=== PATIENT | male | born 1985 | race Caucasian/White ===

== ENCOUNTER 2019-10-23 15:45 | Observation (INO) ==
[2019-10-23] MEDS ORDERED: SODIUM CHLORIDE 0.9% 1000ML 2,000 ML IV ONE (16:05)
[2019-10-23] MEDS ORDERED: ONDANSETRON INJ 2 MG/ML 2 ML VIAL IV STA ×2 (16:05→20:21)
[2019-10-23 16:54] LABS: Basophils # (auto) 0.03 K/uL (0-0.2); Basophils % (auto) 0.1 %; Eosinophils # (auto) 5.58 K/uL (0-0.5); Eosinophils % (auto) 25.2 %; Hematocrit (blood only) 49.3 % (42-52); Hemoglobin 17.9 g/dL (14.0-18.0); Immature Granulocytes # (auto) 0.15 K/uL (0.00-0.02); Immature Granulocytes % (auto) 0.7 %; Lymphocytes # (auto) 3.63 K/uL (1.2-3.4); Lymphocytes % (auto) 16.4 %; Mean Corpuscular Hemoglobin 31.7 pg (25-34); Mean Corpuscular Hgb Conc 36.3 g/dL (32-36); Mean Corpuscular Volume 87.3 fL (80-100); Monocytes # (auto) 1.32 K/uL (0.11-0.59); Neutrophils # (auto) 11.43 K/uL (1.4-6.5); Neutrophils % (auto) 51.6 %; Platelet Count 302 K/uL (130-400); RDW Coefficient of Variation 12.7 % (11.5-14.5); RDW Standard Deviation 40.2 fL (36.4-46.3); Red Blood Count 5.65 M/uL (4.7-6.1); White Blood Count 22.14 K/uL (4.8-10.8)
--- NOTE | 2019-10-23 17:19 | Emergency Department Note ---
Impression & Plan Abdominal pain, Vomiting, Leukocytosis, Abdominal ascites, Right upper quadrant abdominal pain ED Provider Note NAME: ANGELY DUMONT AGE: 34 SEX: M : 1985 ARRIVES VIA: Walk-In INFORMANT: Patient ED PROVIDER(S): Grant Pires DO CHIEF COMPLAINT: Abdominal pain HPI: Patient is a 34-year-old male who presents the ER for abdominal pain associate with nausea, vomiting, and diarrhea which has been present since the of this month. He has had chills and felt very achy. This all continued until this past . At that time he has not been able to eat or drink. He continually vomits. Pain is worse with eating and drinking. It Is also w orse with movement. He was tested for coronavirus on Monday and that was negative. He had an ultrasound done today along with blood work. He was referred in as there is a question of gallstones along with a white count of 20,000. Patient denies any chest pain, shortness of breath, cough or runny nose. He has had a fever this past of 100.4. No other exacerbating or remitting factors. No previous belly surgeries. ROS: See above HPI for pertinent positives & negatives. A total of 10 systems reviewed and were otherwise negative. PAST MEDICAL HISTORY:See Below PAST SURGICAL HISTORY:See Below FAMILY HISTORY:See Below SOCIAL HISTORY:See Below HOME MEDICATIONS:See Below ALLERGIES:See Below VITALS:See Below PHYSICAL EXAMINATION: GENERAL: Sitting up in bed, alert, well appearing, well nourished, no distress, non-toxic EYE EXAM: normal conjunctiva. OROPHARYNX: no exudate, no erythema, lips, buccal mucosa, and tongue normal and mucous membranes are moist NECK: supple, no nuchal rigidity, no adenopathy, non-tender LUNGS: Clear to auscultation. Normal chest wall mechanics HEART: no murmurs, S1 normal and S2 normal ABDOMEN: abdomen soft, minimal tenderness in the right upper quadrant, normo- active bowel sounds, no masses, no rebound or guarding. BACK: Back is symmetrical on inspection and there is no deformity, no midline tenderness, no CVA tenderness. SKIN: no rashes and no bruising UPPER EXTREMITIES: upper extremities are grossly normal. LOWER EXTREMITIES: No pitting edema. NEURO EXAM: Normal sensorium, cranial nerves II-XII grossly intact, normal speech, no gross weakness of arms, no gross weakness of legs. MEDICAL DECISION MAKING: Patient is a 34-year-old male who presents the ER for abdominal pain which is been going on since . IV was established blood work was obtained. Labs show leukocytosis of 22,000. No significant anemia. BMP shows slightly elevated chloride. LFTs bilirubin and lipase was unremarkable. UA was clean. Reviewed the ultrasound as an outpatient which was indeterminate due to bowel gas pattern consequently performed a CT abdomen pelvis was performed and showed mesenteric and portal traction of the proximal jejunum and duodenum suggesting an enteritis and small amount ascites. There is distal esophageal thickening which consistent with previous. Mild infiltration adjacent to the bladder although not consistent with UTI as though UA is negative. There is some gallbladder distention. Consulted general surgery who recommended initially via telephone admission to the hospitalist. He evaluated the patient at bedside. He recommended transfer as he was concern for Patricia-Robert tear. He did admit that he did not see any clear perforation. For this to be a perforation this would not be a Patricia-Robert tear but rather poor habits syndrome. He does have a history of a previous pleural effusion before in the past. Discussed with [facility] hospitalist who declined transfer after discussion of the case that this is not consistent with a Boerhaave syndrome. We discussed the case with radiology Dr. Kyle Ballesteros who notes that he sees no perforation in the distal esophagus does appear to be consistent with previous imaging. As [facility] would not accept this patient we discussed the case with our general surgery but due to the time labs Dr. Leatha Short is currently hospital nurse liaison. Discussed the entire case with her. She was agreeable with admission to the hospitalist. At this time I rediscussed the case with the hospitalist and Dr. hall who was agreeable to admitting the patient. Patient had already received IV fluids. Patient received IV Zosyn I also gave him IV morphine and Protonix IV. Throughout his time in the ER heart rate has trended down to the 90s from the 120s. Signs and outpatient was reviewed and showed technically limited and increased echogenicity of the liver with a hypoechoic region adjacent to the gallbladder. 6 mm gallbladder polyp versus sludge. Triage Nursing notes reviewed. Prior medical records reviewed Vital Signs: reviewed and remarkable for hypertensive and tachycardic Differential diagnosis: Differential diagnoses includes but is not limited to gastritis, peptic ulcer disease, GERD, gallbladder disease, pancreatitis, small bowel obstruction, acute coronary syndrome, pericarditis, ischemic bowel, irritable bowel disease, irritable bowel syndrome, appendicitis, diverticulitis, malignancy, hernia, urinary tract infection, torsion, perforation, trauma, infectious. ER treatment provided: See below Diagnostics interpreted by me: ECG: none Cardiac Monitoring: An order was placed for continuous cardiac monitoring. The monitor shows a rate of 110 with sinus rhythm. Laboratory studies: As stated above and show below. Imaging studies: CT abdomen pelvis shows:1. Thickening and associated mesenteric infiltration of the proximal jejunum and duodenum. The findings suggest a nonspecific enteritis. Small amount of associated ascites. No evidence for a bowel obstruction. Normal appendix. No abscess. No free air. 2. Marked circumferential distal esophageal wall thickening which is similar to CT of May 03, 2014. Although nonspecific, this favors esophagitis. 3. Mild infiltration adjacent to the bladder which could be correlated with urinalysis. 4. Mild gallbladder distention. 5. Mild nonspecific perirectal infiltration. Consultation(s): Consultations as discussed above in the MDM Discussed with Dr. Leonardo who recommended admission to [facility] initially [facility] D[facility] with [facility] who declined transfer Discussed with Kyle Ballesteros Discussed with Leatha Short who was agreeable with admission here Discussed with Dr. hill for admission ED COURSE: Procedures: none Critical Care: None Past Med/Surg History Social History Smoking Status: Current some day smoker Tobacco Type: Cigars Feels Safe at Home: Yes Allergies Allergies Allergy/AdvReac Type Severity Reaction Status Date / Time ketorolac AdvReac Intermediate "Horrible" Verified 10/23/19 16:36 Acid Reflux Home Meds Home Medications Medication Instructions Recorded Confirmed famotidine 20 mg PO BID 10/23/19 10/23/19 paroxetine HCl 20 mg PO HS 10/23/19 10/23/19 Results & Data (ED) Vital Signs Vital Signs - 24 hr 10/23/19 15:48 10/23/19 16:06 10/23/19 16:46 Temperature 36.6 C Temperature Source Oral Pulse Rate 116 H 77 Pulse Rate from SpO2 Sensor Respiratory Rate 20 15 Respiratory Effort / Characteristics Non-Labored Respiratory Depth Normal Blood Pressure 185/136 H Blood Pressure Mean 152 Pulse Oximetry 96 99 Oxygen Delivery Method Room Air Room Air Sepsis Recent Fever Within 48 Hours No Sepsis New/Unexplained Change in Mental Status N/A Sepsis Action Taken by Nursing No Action Required 10/23/19 16:50 10/23/19 17:00 10/23/19 17:10 Temperature Temperature Source Pulse Rate 85 82 82 Pulse Rate from SpO2 Sensor Respiratory Rate 21 17 22 Respiratory Effort / Characteristics Respiratory Depth Blood Pressure Blood Pressure Mean Pulse Oximetry Oxygen Delivery Method Sepsis Recent Fever Within 48 Hours Sepsis New/Unexplained Change in Mental Status Sepsis Action Taken by Nursing 10/23/19 17:20 10/23/19 17:49 10/23/19 17:51 Temperature Temperature Source Pulse Rate 93 H 92 H Pulse Rate from SpO2 Sensor 92 H 93 H Respiratory Rate 16 21 17 Respiratory Effort / Characteristics Respiratory Depth Blood Pressure 174/128 H Blood Pressure Mean 143 Pulse Oximetry 99 98 Oxygen Delivery Method Sepsis Recent Fever Within 48 Hours Sepsis New/Unexplained Change in Mental Status Sepsis Action Taken by Nursing 10/23/19 18:00 10/23/19 18:01 10/23/19 18:10 Temperature Temperature Source Pulse Rate 80 92 H 88 Pulse Rate from SpO2 Sensor 81 93 H 84 Respiratory Rate 15 17 14 Respiratory Effort / Characteristics Respiratory Depth Blood Pressure 173/126 H Blood Pressure Mean 141 Pulse Oximetry 96 95 97 Oxygen Delivery Method Sepsis Recent Fever Within 48 Hours Sepsis New/Unexplained Change in Mental Status Sepsis Action Taken by Nursing 10/23/19 18:20 10/23/19 18:30 10/23/19 18:34 Temperature Temperature Source Pulse Rate 89 83 75 Pulse Rate from SpO2 Sensor 87 82 77 Respiratory Rate 16 18 14 Respiratory Effort / Characteristics Respiratory Depth Blood Pressure 194/142 H Blood Pressure Mean 176 Pulse Oximetry 97 98 97 Oxygen Delivery Method Sepsis Recent Fever Within 48 Hours Sepsis New/Unexplained Change in Mental Status Sepsis Action Taken by Nursing 10/23/19 18:40 10/23/19 18:50 10/23/19 19:00 Temperature Temperature Source Pulse Rate 89 80 75 Pulse Rate from SpO2 Sensor 88 83 79 Respiratory Rate 17 14 14 Respiratory Effort / Characteristics Respiratory Depth Blood Pressure Blood Pressure Mean Pulse Oximetry 98 98 97 Oxygen Delivery Method Sepsis Recent Fever Within 48 Hours Sepsis New/Unexplained Change in Mental Status Sepsis Action Taken by Nursing 10/23/19 19:01 10/23/19 19:10 10/23/19 19:20 Temperature Temperature Source Pulse Rate 96 H 81 86 Pulse Rate from SpO2 Sensor 96 H 83 88 Respiratory Rate 19 16 22 Respiratory Effort / Characteristics Respiratory Depth Blood Pressure Blood Pressure Mean Pulse Oximetry 96 97 97 Oxygen Delivery Method Sepsis Recent Fever Within 48 Hours Sepsis New/Unexplained Change in Mental Status Sepsis Action Taken by Nursing 10/23/19 19:30 10/23/19 19:32 Temperature Temperature Source Pulse Rate 100 H 94 H Pulse Rate from SpO2 Sensor 100 H 96 H Respiratory Rate 23 20 Respiratory Effort / Characteristics Respiratory Depth Blood Pressure 169/107 H Blood Pressure Mean 123 Pulse Oximetry 97 97 Oxygen Delivery Method Sepsis Recent Fever Within 48 Hours Sepsis New/Unexplained Change in Mental Status Sepsis Action Taken by Nursing Laboratory Data Result diagrams: 10/23/19 16:46 10/23/19 16:46 Lab Results 10/23/19 10/23/19 10/23/19 Range/Units 16:46 16:46 17:50 WBC 22.14 H (4.8-10.8) K/uL RBC 5.65 (4.7-6.1) M/uL Hgb 17.9 (14.0-18.0) g/dL Hct 49.3 (42-52) % MCV 87.3 (80-100) fL MCH 31.7 (25-34) pg MCHC 36.3 H (32-36) g/dL RDW Std Deviation 40.2 (36.4-46.3) fL RDW Coeff of Jay 12.7 (11.5-14.5) % Plt Count 302 (130-400) K/uL MPV 11.0 H (7.4-10.4) fL Immature Gran % (Auto) 0.7 % Neut % (Auto) 51.6 % Lymph % (Auto) 16.4 % [place] % (Auto) 6.0 % Eos % (Auto) 25.2 % Baso % (Auto) 0.1 % Neut # (Auto) 11.43 H (1.4-6.5) K/uL Lymph # (Auto) 3.63 H (1.2-3.4) K/uL [place] # (Auto) 1.32 H (0.11-0.59) K/uL Eos # (Auto) 5.58 H (0-0.5) K/uL Baso # (Auto) 0.03 (0-0.2) K/uL Immature Gran # (Auto) 0.15 H (0.00-0.02) K/uL Sodium 142 (136-145) mmol/L Potassium 3.8 (3.5-5.1) mmol/L Chloride 108 H (98-107) mmol/L Carbon Dioxide 29 (21-32) mmol/L Anion Gap 5.0 (3-11) BUN 11 (7-18) mg/dl Creatinine 1.21 (0.6-1.4) mg/dl Est Cr Clr Drug Dosing Not Reportable Est GFR ( Amer) 90.0 Est GFR (Non-Af Amer) 77.6 BUN/Creatinine Ratio 9.2 L (10-20) Glucose 93 (70-99) mg/dl Calcium 9.2 (8.5-10.1) mg/dl Total Bilirubin 0.9 (0.2-1) mg/dl AST 25 (15-37) U/L ALT 36 (12-78) U/L Alkaline Phosphatase 49 (45-117) U/L Total Protein 7.6 (6.4-8.2) gm/dl Albumin 3.7 (3.4-5.0) gm/dl Globulin 3.9 (2.5-4.0) gm/dl Albumin/Globulin Ratio 0.9 (0.9-2) Lipase 122 (73-393) U/L Specimen Hemolysis Urine Color Yellow Urine Appearance Clear (Clear) Urine pH 6.5 (4.5-7.5) Ur Specific [place] 1.038 H (1.000-1.030) Urine Protein Negative (Negative) Urine Glucose (UA) Negative (Negative) Urine Ketones Negative (Negative) Urine Blood Negative (Negative) Urine Nitrite Negative (Negative) Urine Bilirubin Negative (Negative) Urine Urobilinogen Negative (Negative) Ur Leukocyte Esterase Negative (Negative) Administered Medications Ioversol (Optiray 320 100ml) 93 ml IV ONCE PRN PRN Reason: Interaction Checking Stop: 10/27/19 17:32 Last Admin: 10/23/19 17:34 Dose: 93 ml Documented by: [id number] Discontinued Medications Sodium Chloride (Nss 1000ml) 2,000 mls @ 999 mls/hr IV .Q2H1M ONE Stop: 10/23/19 18:05 Last Infusion: 10/23/19 19:33 Dose: 0 mls/hr Documented by: [id number] Admin: 10/23/19 16:44 Dose: 999 mls/hr Documented by: [id number] Piperacillin Sod/Tazobactam Sod (Zosyn) 4.5 gm in 120 mls @ 240 mls/hr IV NOW ONE; Protocol Stop: 10/23/19 18:17 Last Infusion: 10/23/19 19:33 Dose: 0 mls/hr Documented by: [id number] Admin: 10/23/19 18:33 Dose: 240 mls/hr Documented by: [id number] Ondansetron HCl (Zofran) 4 mg IV NOW STA Stop: 10/23/19 16:06 Last Admin: 10/23/19 16:44 Dose: 4 mg Documented by: [id number] Discharge Plan Visit Data Chief Complaint: Abnormal Labs/Diagnostic Testing Stated Complaint: ABNORMAL LABS FROM THIS MORNING - REF BY DOC ED Provider: Grant Pires Discharge Problem: Abdominal pain, Vomiting, Leukocytosis, Abdominal ascites, Right upper quadrant abdominal pain Forms Stand Alone Forms: [place] Prescriptions Prescriptions: No Action famotidine 20 mg tablet 20 mg PO BID RF: 0 paroxetine HCl 20 mg tablet 20 mg PO HS RF: 0 Discharge Problem: Abdominal pain Qualifiers: Abdominal location: unspecified location Qualified Code(s): R10.9 - Unspecified abdominal pain Vomiting Qualifiers: Vomiting type: unspecified Vomiting Intractability: unspecified Nausea presence: unspecified Qualified Code(s): R11.10 - Vomiting, unspecified Leukocytosis Qualifiers: Leukocytosis type: unspecified Qualified Code(s): D72.829 - Elevated white blood cell count, unspecified Abdominal ascites Qualifiers: Ascites type: other type Qualified Code(s): R18.8 - Other ascites
[2019-10-23 17:21] LABS: Alanine Aminotransferase 36 U/L (12-78); Albumin Globulin Ratio 0.9 (0.9-2); Albumin Level 3.7 gm/dl (3.4-5.0); Alkaline Phosphatase 49 U/L (45-117); Aspartate Aminotransferase 25 U/L (15-37); BUN Creatinine Ratio 9.2 (10-20); Bilirubin,Total 0.9 mg/dl (0.2-1); Blood Urea Nitrogen 11 mg/dl (7-18); Calcium 9.2 mg/dl (8.5-10.1); Carbon Dioxide 29 mmol/L (21-32); Chloride 108 mmol/L (98-107); Est GFR (Non-African American) 77.6; Globulin 3.9 gm/dl (2.5-4.0); Glucose 93 mg/dl (70-99); Lipase 122 U/L (73-393); Potassium 3.8 mmol/L (3.5-5.1); Sodium 142 mmol/L (136-145); Total Protein 7.6 gm/dl (6.4-8.2)
[2019-10-23] MEDS ORDERED: IOVERSOL 100ml IV PRN (17:33)
[2019-10-23] MEDS ORDERED: PIPERACILL/TAZOBAC CONSULT ACTIVE PRN (17:48)
[2019-10-23] MEDS ORDERED: PIPERACILLIN/TAZOBACTAM 4.5 GM/120 ML BAG IV ONE (17:48)
[2019-10-23 18:05] LABS: Appearance Urine Clear (Clear); Bilirubin Urine Negative (Negative); Blood Urine Negative (Negative); Color Urine Yellow; Glucose Urine UA Negative (Negative); Ketones Urine Negative (Negative); Leukocyte Esterase Urine Negative (Negative); Nitrite Urine Negative (Negative); Protein Urine Negative (Negative); Specific Gravity Urine 1.038 (1.000-1.030); Urobilinogen Urine Negative (Negative); pH Urine 6.5 (4.5-7.5)
--- NOTE | 2019-10-23 18:05 | CT Scan Report ---
CT OF THE ABDOMEN AND PELVIS WITH CONTRAST CLINICAL HISTORY: Abdominal pain. Leukocytosis. COMPARISON STUDY: CT of the abdomen and pelvis May 03, 2014. TECHNIQUE: Following IV administration of 93 mL of Optiray-320, axial images of the abdomen and pelvi s were obtained from the lung bases to the proximal femurs. Images were reviewed in the axial, sagitt al, and coronal planes. IV contrast was administered without complication. Automated exposure contro l was utilized for the study. A dose lowering technique was utilized adhering to the principles of A PENG. CT DOSE: 2190.79 mGy.cm FINDINGS: Visualized portions of the lower chest demonstrate a trace right pleural effusion. There is marked circumferential wall thickening of the distal esophagus. This is similar to CT of May 03, 2014. A small amount of ascites within the abdomen and pelvis is noted. There is probable fatty infi ltration of the liver. No hepatic lesions are noted. No biliary or pancreatic ductal dilatation. No p eripancreatic infiltration is present. Bladder is mildly distended. The spleen, adrenal glands and ri ght kidney are unremarkable. There is no hydronephrosis. A 7.1 cm left renal cyst is noted. There is no evidence for a bowel obstruction. The appendix is normal. Note is made of mild wall thickening and mesenteric infiltration associated with several jejunal loops as well as the fourth portion of the d uodenum. Major vasculature is patent. No transition point is identified. There is mild infiltration a djacent to the bladder. There is mild perirectal infiltration. No suspicious osseous lesions are note d. IMPRESSION: 1. Thickening and associated mesenteric infiltration of the proximal jejunum and duodenum. The findin gs suggest a nonspecific enteritis. Small amount of associated ascites. No evidence for a bowel obstr uction. Normal appendix. No abscess. No free air. 2. Marked circumferential distal esophageal wall thickening which is similar to CT of May 03 5. Although nonspecific, this favors esophagitis. 3. Mild infiltration adjacent to the bladder which could be correlated with urinalysis. 4. Mild gallbladder distention. 5. Mild nonspecific perirectal infiltration. ACT 112: Negative or not required by law. Electronically signed by: Bucky Ballesteros M.D. 10/23/2019 6:03 PM
--- NOTE | 2019-10-23 19:36 | Surgery Consultation ---
Date of Consultation October 23, 2019 Assessment & Plan (1) Epigastric pain: pt is a 34 year-old male who presents to ER with 11 days history nausea, vomiting, epigastric pain and diarrhea, IMP: vomiting, epigastric pain, to R/O Patricia-Robert tear syndrome consult GI, and thoracic surgeon, transfer to tertiary care, D/W pt about H/P, labs, U/S, CT scan diagnosis, and transfer for further diagnosis and treatment, pt understood, he agrees with the plan, D/W ER attending, Present on Admission?: Yes (2) Vomiting: History of Present Illness History of Present Illness CC: epigastric pain with nausea and vomiting, HPI: pt is a 34 year-old male who presents to ER with 11 days history nausea, vomiting and diarrhea, pt's symptoms were worse about 6 days ago, pt developed epigastric pain after vomiting, with fever 100.4, and chills, pt could not take foods down, pt feels worse epigastric pain when he take po food, pt denies chest pain, otherwise pt is healthy in the past, pt had U/S and WBC 20,000, at outside hospital, U/S showed no gallstone, no acute cholecystitis, pt had CT scan at Er showed- a trace right pleural effusion. There is marked circumferential wall thickening of the distal esophagus. Allergies Allergy/AdvReac Type Severity Reaction Status Date / Time ketorolac AdvReac Intermediate "Horrible" Verified 10/23/19 16:36 Acid Reflux Home Medications Home Medications Medication Instructions Recorded Confirmed Type famotidine 20 mg PO BID 10/23/19 10/23/19 History paroxetine HCl 20 mg PO HS 10/23/19 10/23/19 History Patient History Social History Smoking Status: Current some day smoker Tobacco Type: Cigars Feels Safe at Home: Yes Review of Systems Review of Systems: All systems reviewed & are unremarkable except as noted in HPI & below Constitutional: as per Subjective / HPI Eyes: as per Subjective / HPI Ear, Nose, Mouth, Throat: as per Subjective / HPI Respiratory: as per Subjective / HPI Cardiovascular: as per Subjective / HPI Gastrointestinal: as per Subjective / HPI Genitourinary: + as per Subjective / HPI Musculoskeletal: as per Subjective / HPI Integumentary: as per Subjective / HPI Neurologic: as per Subjective / HPI Psychiatric: as per Subjective / HPI Endocrine: as per Subjective / HPI Hematologic / Lymphatic: as per Subjective / HPI Physical Exam Constitutional: WD/WN, vitals as above well developed and well nourished Eyes: PERRL, conjunctivae normal, anicteric sclerae ENMT: external ear and nose normal, oropharynx normal Neck: trachea midline, no thyromegaly Respiratory: normal respiratory effort, lungs clear to auscultation normal respiratory effort Cardiovascular: RRR, no murmur, no edema Rate/Rhythm: regular rate Heart Sounds: normal S1 and normal S2 Gastrointestinal (Abdomen): tenderness at epigastric area and RUQ area, no rebound pain, no distend, BS + Musculoskeletal: no cyanosis or clubbing, extremities motor strength 5/5 Skin: no rashes, warm and dry Neurologic: patellar DTR's 2+ bilat, sensation intact Psychiatric: Orientation: alert and oriented x 3 Results & Data Vital Signs (Past 12 Hours) Vital Signs Temp Pulse Resp BP Pulse Ox 10/23/19 18:40 89 17 98 10/23/19 18:34 75 14 194/142 H 97 10/23/19 18:30 83 18 98 10/23/19 18:20 89 16 97 10/23/19 18:10 88 14 97 10/23/19 18:01 92 H 17 95 10/23/19 18:00 80 15 173/126 H 96 10/23/19 17:51 92 H 17 98 10/23/19 17:49 93 H 21 174/128 H 99 10/23/19 17:20 16 10/23/19 17:10 82 22 10/23/19 17:00 82 17 10/23/19 16:50 85 21 10/23/19 16:46 77 15 10/23/19 16:06 99 10/23/19 15:48 36.6 C 116 H 20 185/136 H 96 Laboratory Results Abnormal lab results 10/23/19 10/23/19 10/23/19 Range/Units 16:46 16:46 17:50 WBC 22.14 H (4.8-10.8) K/uL MCHC 36.3 H (32-36) g/dL MPV 11.0 H (7.4-10.4) fL Neut # (Auto) 11.43 H (1.4-6.5) K/uL Lymph # (Auto) 3.63 H (1.2-3.4) K/uL [place] # (Auto) 1.32 H (0.11-0.59) K/uL Eos # (Auto) 5.58 H (0-0.5) K/uL Immature Gran # (Auto) 0.15 H (0.00-0.02) K/uL Chloride 108 H (98-107) mmol/L BUN/Creatinine Ratio 9.2 L (10-20) Ur Specific [place] 1.038 H (1.000-1.030) Diagnostic Findings CT OF THE ABDOMEN AND PELVIS WITH CONTRAST CLINICAL HISTORY: Abdominal pain. Leukocytosis. COMPARISON STUDY: CT of the abdomen and pelvis May 03, 2014. TECHNIQUE: Following IV administration of 93 mL of Optiray-320, axial images of the abdomen and pelvis were obtained from the lung bases to the proximal femurs. Images were reviewed in the axial, sagittal, and coronal planes. IV contrast was administered without complication. Automated exposure control was utilized for the study. A dose lowering technique was utilized adhering to the principles of ALARA. CT DOSE: 2190.79 mGy.cm FINDINGS: Visualized portions of the lower chest demonstrate a trace right pleural effusion. There is marked circumferential wall thickening of the distal esophagus. This is similar to CT of May 03, 2014. A small amount of ascites within the abdomen and pelvis is noted. There is probable fatty infiltration of the liver. No hepatic lesions are noted. No biliary or pancreatic ductal dilatation. No peripancreatic infiltration is present. Bladder is mildly dist ended. The spleen, adrenal glands and right kidney are unremarkable. There is no hydronephrosis. A 7.1 cm left renal cyst is noted. There is no evidence for a bowel obstruction. The appendix is normal. Note is made of mild wall thickening and mesenteric infiltration associated with several jejunal loops as well as the fourth portion of the duodenum. Major vasculature is patent. No transition point is identified. There is mild infiltration adjacent to the bladder. There is mild perirectal infiltration. No suspicious osseous lesions are noted. IMPRESSION: 1. Thickening and associated mesenteric infiltration of the proximal jejunum and duodenum. The findings suggest a nonspecific enteritis. Small amount of associated ascites. No evidence for a bowel obstruction. Normal appendix. No abscess. No free air. 2. Marked circumferential distal esophageal wall thickening which is similar to CT of May 03, 2014. Although nonspecific, this favors esophagitis. 3. Mild infiltration adjacent to the bladder which could be correlated with urinalysis. 4. Mild gallbladder distention. 5. Mild nonspecific perirectal infiltration.
--- NOTE | 2019-10-23 19:45 | XRay Report ---
XR chest 1V portable CLINICAL HISTORY: Vomiting. COMPARISON STUDY: Chest radiograph September 27, 2009. FINDINGS: Lung volumes are normal. Lungs are clear. There is no pneumothorax or pleural effusion. Car diac size is normal. Mediastinal contours are normal. There is no evidence for pulmonary edema. IMPRESSION: No acute cardiopulmonary findings. ACT 112: Negative or not required by law. Electronically signed by: Bucky Ballesteros M.D. 10/23/2019 7:43 PM
[2019-10-23] MEDS ORDERED: MoRPHine SULFATE 10 MG/ML CARP/VIAL IV STA (20:21)
[2019-10-23] MEDS ORDERED: PANTOprazole 40 MG in SYRINGE 0 ML IV ONE (20:21)
[2019-10-23] MEDS ORDERED: MoRPHine SULFATE 4 MG/ML 1 ML CARP\\VIAL ONE (20:36)
[2019-10-23] MEDS ORDERED: MoRPHine SULFATE 2 MG/ML CARP ONE (20:36)
[2019-10-23] MEDS: FAMOTIDINE 20 MG TAB PO SCH (22:13)
[2019-10-23] MEDS ORDERED: ACETAMINOPHEN 325 MG TAB PO PRN (22:45)
[2019-10-23] MEDS ORDERED: ONDANSETRON INJ 2 MG/ML 2 ML VIAL IV PRN (22:45)
[2019-10-23] MEDS: D5W AND NSS 1,000 ML IV SCH (23:23)
[2019-10-23] MEDS: PANTOprazole 40 MG in SYRINGE 0 ML IV SCH (23:50)
--- NOTE | 2019-10-23 23:58 | History and Physical Report ---
DATE OF ADMISSION: 10/23/2019 CHIEF COMPLAINT: Nausea, vomiting, diarrhea, abdominal pain. HISTORY OF PRESENT ILLNESS: This is a 34-year-old male with past medical history significant for generalized anxiety disorder, history of angioedema, cystitis, obesity, comes because of ongoing nausea, vomiting, abdominal pain, diarrhea. The patient's symptoms started on the of this month. Initially felt flu-like symptoms, but last night he started with nausea, vomiting, abdominal pain and several episodes of diarrhea. He could not eat anything, he could not even tolerate popsicles. His COVID test was done on last Monday and it came back negative and he had tele medicine and seen by his family doctor and labs were ordered and ultrasound was done yesterday. His labs came back as his white count was 24,000 and imaging, ultrasound of the abdominal was mostly suboptimal study which was unremarkable except for 6 mm gallbladder polyp versus sludge. Because of elevated white count, the patient advised to come here. In the ER, his white count is 22,000 and hemodynamically stable, afebrile. His LFTs were okay. Urinalysis negative. CT abdomen and pelvis was done which showed mesenteric infiltration of the proximal jejunum and duodenum, nonspecific enteritis, small amount of ascites. Normal appendix. No abscess or no free air, circumferential distal esophageal wall thickening similar to CT scan of 04/2014, favors esophagitis, mild gallbladder distention, mild nonspecific perirectal infiltration.Mild right pleural effusion. Chest x-ray showed no acute cardiopulmonary findings. Initially evaluated by Surgery they thought there could be Boerhaave syndrome as there was pleural effusion and the patient's initial plan was transfer to tertiary care. 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 The patient says his nausea has improved, today, he was able to eat solid food after a long time. He is having like low grade temperatures in the evening in the nighttime with some chills and highest temperature was 100.4, and yesterday the temperature was about 99, but he is getting chills every night. He has allergies and he has some runny nose once in a while, but they are not unusual, but he generally coughs once in a while, but his cough is not much but is slightly more than usual. No shortness of breath. He says since the symptoms started, he sometimes having felt like a lump in throat and difficulty swallowing, but that resolves on its own. Has some headache today that is improved. No blurred visions. No earache. Also he had a couple of days of sore throat when he woke up, but that resolved after a couple of hours. Currently, no nausea, abdominal pain improved, but he had episode of diarrhea in the morning. No blood in the stools. Normal bowel and bladder movements. No burning micturition, no hematuria. No swelling in the legs, ambulates okay. Sleeps okay. ALLERGIES: KETOROLAC. PAST MEDICAL HISTORY: As mentioned above. PAST SURGICAL HISTORY: Peroneal nerve palsy decompression, wisdom teeth extraction, umbilical exploration. MEDICATIONS: On famotidine 20 mg p.o. b.i.d., paroxetine 20 mg p.o. at bedtime. FAMILY HISTORY: Significant for mother had breast cancer. Brother has allergies, maternal grandmother had ovarian cancer. Paternal grandmother has ovarian, breast, and lung cancer. SOCIAL HISTORY: Single. No smoking. Alcohol, 2 gallons of beer per week. No drug use. REVIEW OF SYMPTOMS: As per HPI. Rest of review of symptoms negative. PHYSICAL EXAMINATION: GENERAL: The patient is obese, not in acute distress. VITAL SIGNS: Temperature 36.8, pulse 94, respiratory rate 19, blood pressure 169/107, oxygen 97% room air. HEENT: No pallor, no icterus. NECK: No JVD seen. No neck masses seen. CARDIOVASCULAR: S1, S2 heard, regular rate and rhythm, no murmur, no gallop. RESPIRATORY SYSTEM: Normal AP diameter. No accessory muscle use. No wheezing, no crackles. ABDOMEN: Soft, bowel sounds present, nontender. No distention, no guarding, no rigidity. CENTRAL NERVOUS SYSTEM: Cranial nerves II-XII grossly intact. Nonfocal. EXTREMITIES: No edema, no erythema. LABORATORY DATA: WBC 22.14, hemoglobin 17.9, hematocrit 49.3 and platelets 302,000. Sodium 142, potassium 3.8, chloride 108, bicarbonate 29, BUN 11, creatinine 1.2, serum glucose 93, calcium 9.2, total bilirubin 0.9, AST 25, ALT 36, alkaline phosphatase 49, lipase 122. Urinalysis negative. IMAGING: CT of abdomen and pelvis, thickening and associated mesenteric infiltration of the proximal jejunum and duodenum. These findings suggest nonspecific enteritis, small amount of associated ascites, no evidence of bowel obstruction, normal appendix. No abscess, no free air, marker circumferential distal esophagus wall thickening which is similar to CT scan of 04/2014. Although nonspecific, this favors esophagitis, mild infiltration adjacent to the bladder, which could be correlated with urinalysis. Mild gallbladder distention, mild nonspecific perirectal infiltration. Chest x-ray, no acute cardiopulmonary findings. ASSESSMENT AND PLAN: This 34-year-old male who presents with nausea, vomiting, abdominal pain, diarrhea. 1. Nausea, vomiting, abdominal pain, diarrhea: Ongoing since last . Initially, the first few days has flu like symptoms. His COVID test done on last Monday was negative. Outpatient labs and gallbladder ultrasound show gallbladder polyp and leukocytosis. CAT scan done here shows mild gallbladder distention, nonspecific enteritis and perirectal infiltration, and mild gallbladder distention. Surgery was notified by ER. 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 Currently, the patient is hemodynamically stable. Started on empiric IV Zosyn, which we will continue, n.p.o., IV fluids, D5 normal saline 125 mL per hour, IV morphine p.r.n., IV Zofran p.r.n. We will also consult GI for further recommendation. We will also get a CT of the chest to trace right pleural effusion noted on CT abdomen and pelvis. 2. Esophagitis: On IV Protonix b.i.d. 3. Leukocytosis. As above. 4. Generalized anxiety disorder: Continue his home medication, paroxetine. 5. Deep venous thrombosis prophylaxis: Sequential compression devices for now, Disposition: Admit to medical floor. Expect discharge home and follow with family doctor. Level 1 full code. We will also check stool studies. MTDD
[2019-10-24] MEDS: PIPERACILLIN/TAZOBACTAM 4.5 GM in DEXTROSE 5% 100 ML IV SCH ×4 (00:22→23:53)
[2019-10-24 05:40] LABS: Basophils # (auto) 0.03 K/uL (0-0.2); Basophils % (auto) 0.2 %; Eosinophils % (auto) 19.4 %; Hematocrit (blood only) 44.4 % (42-52); Hemoglobin 15.7 g/dL (14.0-18.0); Immature Granulocytes % (auto) 0.5 %; Lymphocytes # (auto) 3.07 K/uL (1.2-3.4); Lymphocytes % (auto) 16.5 %; Mean Corpuscular Hemoglobin 31.2 pg (25-34); Mean Corpuscular Hgb Conc 35.4 g/dL (32-36); Mean Corpuscular Volume 88.1 fL (80-100); Mean Platelet Volume 10.6 fL (7.4-10.4); Monocytes # (auto) 1.14 K/uL (0.11-0.59); Monocytes % (auto) 6.1 %; Neutrophils # (auto) 10.63 K/uL (1.4-6.5); Neutrophils % (auto) 57.3 %; Platelet Count 253 K/uL (130-400); RDW Coefficient of Variation 12.9 % (11.5-14.5); RDW Standard Deviation 41.3 fL (36.4-46.3); Red Blood Count 5.04 M/uL (4.7-6.1); White Blood Count 18.57 K/uL (4.8-10.8)
[2019-10-24 06:14] LABS: BUN Creatinine Ratio 8.6 (10-20); Calcium 7.7 mg/dl (8.5-10.1); Creatinine Clr Calc Pharmacy 125.4 ml/min; Est GFR (African American) 98.8; Est GFR (Non-African American) 85.2; Magnesium 2.3 mg/dl (1.8-2.4); Potassium 3.4 mmol/L (3.5-5.1)
[2019-10-24] MEDS: D5W AND NSS 1,000 ML IV SCH ×2 (07:21→17:18)
--- NOTE | 2019-10-24 07:57 | CT Scan Report ---
CT chest wo con CT DOSE: 1069.89 mGy.cm HISTORY: pleural effusion TECHNIQUE: Multiaxial CT images of the chest were performed without contrast. A dose lowering techni que was utilized adhering to the principles of ALARA. COMPARISON: Abdomen and pelvis CT 10/23/2019. FINDINGS: No mediastinal or hilar lymphadenopathy. The heart is normal in size. Normal caliber thorac ic aorta. Small right pleural effusion has slightly increased in size. Marked diffuse thickening of t he mid to distal esophagus. This remains unchanged. Trace perihepatic fluid. The visualized adrenal g lands and spleen are unremarkable. No suspicious lytic are blastic osseous lesions. No pneumothorax. The central airways are patent. Small amount of consolidation within the right lower lobe posteriorly favors compressive atelectasis. Punctate calcified granuloma within the base of the right lower lobe and base of the left lower lobe. 2 mm nodular density within the lingula on image 159. 5 mm groundgl ass nodule within the left lung apex on image 46. 2 mm nodule within the left upper lobe on image 77. Mild emphysema. IMPRESSION: 1. Slight increase in size in the small right pleural effusion. Associated densities favor compressiv e atelectasis. 2. Marked diffuse thickening of the mid to distal esophagus. This remains unchanged. This favors an e sophagitis. Endoscopy recommended for further evaluation. 3. Trace perihepatic fluid.. 4. A few scattered indeterminate pulmonary nodules within the left lung. The largest in the left lung apex is a 5 mm groundglass nodule. These are likely benign given the patient's age. One year chest C T follow-up can be performed to ensure stability. 5. Mild emphysema. ACT 112: Negative or not required by law. Electronically signed by: Farhan Umaña M.D. 10/24/2019 7:55 AM
--- NOTE | 2019-10-24 08:02 | Hospitalist Progress Note ---
Date of Service October 24, 2019 Assessment & Plan (1) Abdominal pain: (2) Vomiting: (3) Leukocytosis: (4) Abdominal ascites: (5) Right upper quadrant abdominal pain: (6) Epigastric pain: (7) Hypertension: ASSESSMENT AND PLAN: This 34-year-old male who presents with nausea, vomiting, abdominal pain, diarrhea. 1. Nausea, vomiting, abdominal pain, diarrhea: Ongoing since last . Initially, the first few days has flu like symptoms. His COVID test done on last Monday was negative. Outpatient labs and gallbladder ultrasound show gallbladder polyp and leukocytosis. CAT scan done here shows mild gallbladder distention, nonspecific enteritis and perirectal infiltration, and mild gallbladder distention. Surgery was notified by ER. 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 Started on empiric IV Zosyn, which we will continue, n.p.o., IV fluids, D5 normal saline 125 mL per hour, IV morphine p.r.n., IV Zofran p.r.n. GI for further recommendations. CT of the chest to trace right pleural effusion noted on CT abdomen and pelvis. 2. Esophagitis: On IV Protonix b.i.d. 3. Leukocytosis. As above. 4. Generalized anxiety disorder: Continue his home medication, paroxetine. 5. Deep venous thrombosis prophylaxis: Sequential compression devices for now Order HIDA, Lipids, and lipase ROS-No Headache, No Visual Changes, + Nausea, + Vomiting, No Fever, No Chills, No Neck Pain or Stiffness, No Chest Pain, No Palpitations, No SOB, No GORMAN, No Cough, No Sputum, No Wheezing, + Abdominal Pain, No Diarrhea, No Hematemesis, No Hemoptysis, No Unexpected Weight Loss, No Flank pain, No Melena, No Hematochezia, No Frequency, No Urgency, No Burning, No Hematuria, No Rashes, No Diaphoresis. Appetite is Normal Physical Exam Gen-AAO x 3, NAD, Afebrile, Obese Head-NCAT, EOMI, PERRLA, Anicteric Sclera, No Posterior Pharyngeal Erythema Neck-Supple, No JVD, No Thyromegaly, No Masses, No LAD, No Bruits Lungs-Clear to Auscultation Bilaterally, No Rales, No Rhonchi, No Wheezing, No Crepitus Chest-No S4, +S1, +S2, No S3, No Murmurs, No Rubs, No Gallops, No Ectopy Abdomen-Soft, Bowel Sounds Present, RUQ and Epigastric Tender, Non Distended, No Hepatomegaly, No Splenomegaly, No Palpable Masses, No Rebound, No Rigidity, No Guarding Musculoskeletal-Full Range of Motion Bilaterally, No CVAT Extremities-No Cyanosis, No Clubbing, No Edema Nuero-Cranial Nerves II-XII grossly intact, Motor WNL, DTRs WNL, Strength WNL, Non Focal Psych-Normal Mood Admission and Anticipated Discharge Date Admission Date: October 23, 2019 Results & Data Results & Data ([facility]) Vital Signs (Past 12 Hours) Vital Signs Temp Pulse Pulse Pulse Resp BP BP 10/24/19 07:35 36.6 C 69 18 145/89 H 10/24/19 00:06 37.0 C 79 16 146/92 H 10/23/19 22:50 37.2 C 95 H 16 157/104 H 10/23/19 22:20 37.4 C 94 H 18 10/23/19 22:10 86 16 10/23/19 22:00 20 135/91 10/23/19 21:50 18 10/23/19 21:40 85 18 10/23/19 21:30 95 H 19 10/23/19 21:20 16 10/23/19 21:10 16 10/23/19 21:00 93 H 28 H 161/101 H 10/23/19 20:50 94 H 19 10/23/19 20:40 85 17 10/23/19 20:30 80 16 10/23/19 20:20 90 15 10/23/19 20:10 86 17 10/23/19 20:00 86 18 Pulse Ox 10/24/19 07:35 10/24/19 00:06 96 10/23/19 22:50 96 10/23/19 22:20 95 10/23/19 22:10 95 10/23/19 22:00 94 10/23/19 21:50 93 10/23/19 21:40 95 10/23/19 21:30 95 10/23/19 21:20 94 10/23/19 21:10 94 10/23/19 21:00 95 10/23/19 20:50 10/23/19 20:40 10/23/19 20:30 10/23/19 20:20 10/23/19 20:10 10/23/19 20:00 (1) Abdominal ascites Ascites type: other type Qualified Code(s): R18.8 - Other ascites (2) Leukocytosis Leukocytosis type: unspecified Qualified Code(s): D72.829 - Elevated white blood cell count, unspecified (3) Abdominal pain Abdominal location: unspecified location Qualified Code(s): R10.9 - Unspecified abdominal pain (4) Vomiting Nausea presence: unspecified Vomiting Intractability: unspecified Vomiting type: unspecified Qualified Code(s): R11.10 - Vomiting, unspecified
[2019-10-24] MEDS: PANTOprazole 40 MG in SYRINGE 0 ML IV SCH ×2 (08:17→19:57)
[2019-10-24 08:54] LABS: Chol HDL Ratio 6; Cholesterol 143 mg/dl (0-200); HDL Cholesterol 23 mg/dl; LDL Cholesterol Calculated 101 mg/dl; Lipase 113 U/L (73-393); Triglycerides 97 mg/dl (0-150); VLDL Cholesterol 19 mg/dl
[2019-10-24] MEDS ORDERED: SINCALIDE 2.4 MCG in 0.9 % SODIUM CHLORIDE 100 ML IV SCH (09:30)
[2019-10-24] MEDS: FAMOTIDINE 20 MG TAB PO SCH ×2 (11:00→19:57)
--- NOTE | 2019-10-24 11:01 | Nuclear Medicine Report ---
NUCLEAR MEDICINE HEPATOBILIARY SCAN WITH EJECTION FRACTION HISTORY: Generalized abdominal pain. COMPARISON: Abdomen and pelvis CT 10/21/2019. TECHNIQUE: Immediately following the intravenous administration of 5.9 mCi Tc-99m Choletec, dynamic a nterior abdominal imaging pre/post 2.4 mcg of Kinevac was performed. FINDINGS: Uniform hepatic tracer accumulation is shown. Prompt intrahepatic biliary excretion is seen. The gall bladder, common bile duct, and small bowel are all visualized by 20 minutes. This appearance represen ts the normal sequence of biliary excretion. The gall bladder ejection fraction following administration of Kinevac was 5% (normal >35%). IMPRESSION: 1. No evidence for cystic duct obstruction. 2. Abnormally low gallbladder ejection fraction of 5 %. ACT 112: Negative or not required by law. Electronically signed by: Farhan Umaña M.D. 10/24/2019 11:00 AM
--- NOTE | 2019-10-24 11:11 | Gastrointestinal Consultation ---
Date of Consultation October 24, 2019 Assessment & Plan (1) Leukocytosis: (2) Enteritis: (3) Esophagitis: Pt is a 34 y/o male presented w upper abd pain, n/v, loose stools x 1 week; on eval noted to have leukocytosis, and CT evidence of enteritis, esophagitis. - NPO for EGD eval today - Continue Pantoprazole 40mg IV BID - Check stool cx and Cdiff - Symptomatic management w antiemetics prn. - GI will give further recs after endosocopy eval Supervising Physician Co-Signing Physician Notes I performed a history and physical examination of the patient today, including specifically on physical exam - soft abdomen. I have discussed the patient's management with the advanced practitioner. Please refer to the nurse practitioner's note for the documented findings and plan of care. EGD today History of Present Illness Reason for Consultation: Nausea, vomiting, enteritis Requesting Physician: Dr. Chicho Butcher Attending Physician: Dr. Olivia Armstrong History of Present Illness Pt is a 34 y/o male who presented w abd pain, n/v. He reports feeling unwell for last month but within last week, started having upper abd pain, n/v. Denies hematemesis, coffee ground emesis. He also has loose stools w/o dark tarry stools or rectal bleeding. Denies fever, but report chills. No CP, SOB, URI symptoms. He did have COVID 19 test on 10/19 in [facility] which was negative. He denies sick contact, travel, undercooked/raw foods, recent antibiotics. Did receive Prednisone for allergic reaction on face, neck areas a few months ago. Also taking Pepcid at home. On eval, labs showed WBC of 22 w/o signs of anemia. LFTs normal. CT abd/pelvis showed signs of enteritis w/o bowel obstruction, abscess, + esophagitis. He just had HIDA scan today. Denies NSAIDs, ETOH, tobacco Denies family hx of colorectal ca or IBD Allergies Allergy/AdvReac Type Severity Reaction Status Date / Time ketorolac AdvReac Intermediate "Horrible" Verified 10/24/19 13:11 Acid Reflux Home Medications Home Medications Medication Instructions Recorded Confirmed Type famotidine 20 mg PO BID 10/23/19 10/23/19 History paroxetine HCl 20 mg PO HS 10/23/19 10/23/19 History Patient History Social History Smoking Status: Former smoker Tobacco Type: Cigars Second Hand Exposure: No; Do You Dip or Chew Tobacco: No; Tobacco Cessation Education Requested by Patient: No Hx Alcohol Use: Yes Alcohol type: hard liquor Hx Substance Use: No Preferred Language: Georgian Communication Ability: Effective Assembler Utility Buildings Required: No Beliefs That Will Affect Care: None Other Information That Helps Us Care for You: No Feels Safe at Home: Yes Safety Concerns: Feels Safe At This Time Review of Systems Review of Systems: All systems reviewed & are unremarkable except as noted in HPI & below Physical Exam Constitutional: WD/WN, vitals as above well groomed, cooperative and comfortable Eyes: PERRL, conjunctivae normal, anicteric sclerae ENMT: external ear and nose normal, oropharynx normal Respiratory: normal respiratory effort, lungs clear to auscultation Cardiovascular: RRR, no murmur, no edema Gastrointestinal (Abdomen): normal bowel sounds, soft, nontender, no hepatosplenomegaly Skin: no rashes, warm and dry no jaundice Psychiatric: A+Ox3, euthymic affect Lymphatic: no lymphedema Results & Data ([facility]) Vital Signs (Past 12 Hours) Vital Signs Temp Pulse Resp BP Pulse Ox 10/24/19 07:35 36.6 C 69 18 145/89 H 10/24/19 00:06 37.0 C 79 16 146/92 H 96 (1) Leukocytosis Leukocytosis type: unspecified Qualified Code(s): D72.829 - Elevated white blood cell count, unspecified
--- NOTE | 2019-10-24 11:36 | Surgery Progress Note ---
Date of Service just had HIDA scan, report-IMPRESSION: 1. No evidence for cystic duct obstruction. 2. Abnormally low gallbladder ejection fraction of 5 %. pt is still have some epigastric pain, no nausea, no vomiting, October 24, 2019 Assessment & Plan (1) Epigastric pain: pt is a 34 year-old male who presents to ER with 11 days history nausea, vomiting, epigastric pain and diarrhea, IMP: vomiting, epigastric pain, to R/O Corey-Robert tear syndrome consult GI, and thoracic surgeon, transfer to tertiary care, D/W pt about H/P, labs, U/S, CT scan diagnosis, and transfer for further diagnosis and treatment, pt understood, he agrees with the plan, D/W ER attending, 10/24/2019 11:38am I agree with GI for EGD today to R/O corey -Robert tear, WBC 18,000, low gallbladder EF 5% should not have high WBC, pt may need cholecystectomy if EGD normal finding, NPO after MN, pt agrees with the plan, I answered all questions, will F/U (2) Vomiting: Review of Systems Constitutional: as per Subjective / HPI Eyes: as per Subjective / HPI Ear, Nose, Mouth, Throat: as per Subjective / HPI Respiratory: as per Subjective / HPI Cardiovascular: as per Subjective / HPI Gastrointestinal: as per Subjective / HPI Genitourinary: + as per Subjective / HPI Musculoskeletal: as per Subjective / HPI Integumentary: as per Subjective / HPI Neurologic: as per Subjective / HPI Psychiatric: as per Subjective / HPI Endocrine: as per Subjective / HPI Hematologic / Lymphatic: as per Subjective / HPI Physical Exam Constitutional: WD/WN, vitals as above well developed and well nourished Eyes: PERRL, conjunctivae normal, anicteric sclerae ENMT: external ear and nose normal, oropharynx normal Neck: trachea midline, no thyromegaly Respiratory: normal respiratory effort, lungs clear to auscultation normal respiratory effort Cardiovascular: RRR, no murmur, no edema Rate/Rhythm: regular rate Heart Sounds: normal S1 and normal S2 Gastrointestinal (Abdomen): Percussion/Palpation: + abdomen tender and abdomen soft mild tenderness at epigastric and RUQ area, no rebound pain, BS +, no distend Musculoskeletal: no cyanosis or clubbing, extremities motor strength 5/5 Skin: no rashes, warm and dry Neurologic: patellar DTR's 2+ bilat, sensation intact Psychiatric: Orientation: alert and oriented x 3 Results & Data Vital Signs (Past 12 Hours) Vital Signs Temp Pulse Resp BP Pulse Ox 10/24/19 07:35 36.6 C 69 18 145/89 H 10/24/19 00:06 37.0 C 79 16 146/92 H 96
--- NOTE | 2019-10-24 13:25 | Anesthesiology Consultation ---
Date of Service October 24, 2019 Assessment & Plan (1) Encounter for pre-operative examination: Chart Review Chart Review: Acceptable Risk for Surgery Consults Requested none ASA ASA2 Proposed Anesthesia Anesthesia Type: MAC Risk / Benefits Reviewed With: PT / POA / Parent / Guardian, Accepts Plan and Informed Consent Obtained History Surgery Operation Date: 10/24/19 17:25 Proposed Procedures p Esophagogastroduodenoscopy Dr Armstrong - Olivia Armstrong MD Height/Weight Height: 6 ft Weight: 122.1 kg Allergies Allergy/AdvReac Type Severity Reaction Status Date / Time ketorolac AdvReac Intermediate "Horrible" Verified 10/24/19 13:11 Acid Reflux Medications Home Medications Medication Instructions Recorded Confirmed Last Taken famotidine 20 mg PO BID 10/23/19 10/23/19 Unknown paroxetine HCl 20 mg PO HS 10/23/19 10/23/19 Unknown Active Medications Generic Name Dose Route Start Last Admin Trade Name Freq PRN Reason Stop Dose Admin Famotidine 20 mg 10/23/19 22:00 10/24/19 11:00 Pepcid PO 11/22/19 21:59 20 mg BID ADORE Administration Dextrose/Sodium Chloride 1,000 mls @ 125 mls/hr 10/23/19 22:45 10/24/19 07:21 D5w And Nss IV 11/22/19 22:44 125 mls/hr .Q8H ADORE Administration Pantoprazole Sodium 40 mg/ 10 mls @ 5 mls/min 10/23/19 22:45 10/24/19 08:17 Syringe IV 11/22/19 22:44 5 mls/min BID ADORE Administration Piperacillin Sod/Tazobactam 120 mls @ 30 mls/hr 10/24/19 00:00 10/24/19 12:51 Sod 4.5 gm/ Dextrose IV 10/26/19 00:00 Infused Q8H ADORE Infusion Protocol NPO Date Last Intake of Fluids: 10/23/19 Time Last Intake of Fluids: 13:30 Date Last Intake of Solids: 10/23/19 Time Last Intake of Solids: 12:30 Exercise / Class Metabolic Activity II 4-5 Yardwork/Stairs/Walk up hill Past Anesthesia History No Hx of Anesthesia Complications and No Family Hx of Anesthesia Complications History of PONV No Hx of PONV and No Hx of Motion Sickness Social History Smoking Status: Former smoker tobacco type: cigars Do You Dip or Chew Tobacco: No Hx Alcohol Use: Yes Alcohol type: hard liquor alcohol intake frequency: holidays/special occasions only Hx Substance Use: No substance use type: does not use Physical Exam Vital Signs Last Vital Signs Temp 97.3 F L 10/24/19 13:12 Pulse 87 10/24/19 13:12 Resp 18 10/24/19 13:12 BP 173/107 H 10/24/19 13:12 Pulse Ox 97 10/24/19 13:12 ENMT Mouth: no dentition abnormality Thyromental Distance: > or= 3.5 Finger Breadths Mallampati Class: II Neck normal visual inspection Respiratory normal respiratory effort Auscultation: lungs clear to auscultation bilaterally Cardiovascular Rate/Rhythm: regular rate and regular rhythm Testing Laboratory Results 10/24/19 05:27 10/24/19 05:27 Urine Color Yellow 10/23/19 17:50 Urine Appearance Clear (Clear) 10/23/19 17:50 Urine pH 6.5 (4.5-7.5) 10/23/19 17:50 Ur Specific Aroda 1.038 (1.000-1.030) H 10/23/19 17:50 Urine Protein Negative (Negative) 10/23/19 17:50 Urine Glucose (UA) Negative (Negative) 10/23/19 17:50 Urine Ketones Negative (Negative) 10/23/19 17:50 Urine Nitrite Negative (Negative) 10/23/19 17:50 Ur Leukocyte Esterase Negative (Negative) 10/23/19 17:50
[2019-10-24] MEDS ORDERED: PROPOFOL IV EMULSION 10 MG/ML 20 ML VIAL IV ONE (13:33)
[2019-10-24] MEDS ORDERED: LIDOCAINE HCL 2% 2 ML VIAL/AMP(20MG/ML) INFIL ONE (13:33)
--- NOTE | 2019-10-24 13:35 | History & Physical Bridge Note ---
Date of Service October 24, 2019 History & Physical Bridge Note I have examined the patient, reviewed the History & Physical and in the interval since the performance of the History & Physical I have noted the following changes of clinical significance: no changes noted
--- NOTE | 2019-10-24 14:27 | GI REPORT ---
Patient Name: Kosta Rey Procedure Date: 10/24/2019 1:50 PM Date of : 1985 Admit Type: Inpatient Age: 34 Gender: Male Attending MD: Olivia Armstrong MD Procedure: Upper GI endoscopy Providers: Olivia Armstrong MD Referring MD: Chicho Carrero Do Indications: Abnormal CT of the GI tract Medicines: Propofol per Anesthesia Complications: No immediate complications. Estimated Blood Loss: Estimated blood loss: none. Procedure: Pre-Anesthesia Assessment: - Prior to the procedure, a History and Physical was performed, and patient medications, allergies and sensitivities were reviewed. The patient's tolerance of previous anesthesia was reviewed. - The risks and benefits of the procedure and the sedation options and risks were discussed with the patient. All questions were answered and informed consent was obtained. - Patient identification and proposed procedure were verified prior to the procedure by the physician and the nurse. The procedure was verified in the procedure room. - Pre-procedure physical examination revealed no contraindications to sedation. After obtaining informed consent, the endoscope was passed under direct vision. Throughout the procedure, the patient's blood pressure, pulse, and oxygen saturations were monitored continuously. The Endoscope was introduced through the mouth, and advanced to the second part of duodenum. The upper GI endoscopy was accomplished without difficulty. The patient tolerated the procedure well. Findings: LA Grade A (one or more mucosal breaks less than 5 mm, not extending between tops of 2 mucosal folds) esophagitis with no bleeding was found at the gastroesophageal junction. Biopsies were taken with a cold forceps for histology. Verification of patient identification for the specimen was done by the physician and nurse using the patient's name and date. A small hiatal hernia was present. Otherwise, no gross lesions were noted in the entire esophagus to explain esophageal thickening seen on CT scan. The entire examined stomach was normal. The duodenal bulb was normal. Localized moderate inflammation characterized by congestion (edema) and erythema was found in the second portion of the duodenum. Impression: - LA Grade A reflux esophagitis. Biopsied. - Small hiatal hernia. - Normal stomach. - Duodenitis. Recommendation: - Return patient to [facility] for ongoing care. - Perform an upper endoscopic ultrasound (UEUS) at appointment to be scheduled to evaluate submucosal esophageal thickening. - Use Protonix (pantoprazole) 40 mg PO daily. Olivia Armstrong MD 10/24/2019 2:27:32 PM This report has been signed electronically. Note Initiated On: 10/24/2019 1:50 PM Number of Addenda: 0 I attest to the content of the Intraoperative Record and orders documented therein, exceptions below {[id number]}
--- NOTE | 2019-10-24 14:34 | Anesthesiology Progress Note ---
Date of Service October 24, 2019 Anesthesia Post Procedure Vital Signs Vital Signs: Temp Pulse Pulse Pulse Resp BP BP 10/24/19 14:29 85 16 160/95 H 10/24/19 14:14 106 H 16 162/92 H 10/24/19 13:12 97.3 F L 87 87 18 173/107 H 10/24/19 07:35 97.9 F 69 18 145/89 H 10/24/19 00:06 98.6 F 79 16 146/92 H 10/23/19 22:50 99.0 F 95 H 16 157/104 H 10/23/19 22:20 99.3 F 94 H 18 10/23/19 22:10 86 16 10/23/19 22:00 20 135/91 10/23/19 21:50 18 10/23/19 21:40 85 18 10/23/19 21:30 95 H 19 10/23/19 21:20 16 10/23/19 21:10 16 10/23/19 21:00 93 H 28 H 161/101 H 10/23/19 20:50 94 H 19 10/23/19 20:40 85 17 10/23/19 20:30 80 16 10/23/19 20:20 90 15 10/23/19 20:10 86 17 10/23/19 20:00 86 18 10/23/19 19:50 69 15 10/23/19 19:42 20 10/23/19 19:33 89 15 10/23/19 19:32 94 H 20 169/107 H 10/23/19 19:30 100 H 23 10/23/19 19:20 86 22 10/23/19 19:10 81 16 10/23/19 19:01 96 H 19 10/23/19 19:00 75 14 10/23/19 18:50 80 14 10/23/19 18:40 89 17 10/23/19 18:34 75 14 194/142 H 10/23/19 18:30 83 18 10/23/19 18:20 89 16 10/23/19 18:10 88 14 10/23/19 18:01 92 H 17 10/23/19 18:00 80 15 173/126 H 10/23/19 17:51 92 H 17 10/23/19 17:49 93 H 21 174/128 H 10/23/19 17:20 16 07/22/20 17:10 82 22 10/23/19 17:00 82 17 10/23/19 16:50 85 21 10/23/19 16:46 77 15 10/23/19 16:06 10/23/19 15:48 97.9 F 116 H 20 185/136 H Pulse Ox 10/24/19 14:29 95 10/24/19 14:14 93 10/24/19 13:12 97 10/24/19 07:35 10/24/19 00:06 96 10/23/19 22:50 96 10/23/19 22:20 95 10/23/19 22:10 95 10/23/19 22:00 94 10/23/19 21:50 93 10/23/19 21:40 95 10/23/19 21:30 95 10/23/19 21:20 94 10/23/19 21:10 94 10/23/19 21:00 95 10/23/19 20:50 10/23/19 20:40 10/23/19 20:30 10/23/19 20:20 10/23/19 20:10 10/23/19 20:00 10/23/19 19:50 10/23/19 19:42 10/23/19 19:33 97 10/23/19 19:32 97 10/23/19 19:30 97 10/23/19 19:20 97 10/23/19 19:10 97 10/23/19 19:01 96 10/23/19 19:00 97 10/23/19 18:50 98 10/23/19 18:40 98 10/23/19 18:34 97 10/23/19 18:30 98 10/23/19 18:20 97 10/23/19 18:10 97 10/23/19 18:01 95 10/23/19 18:00 96 10/23/19 17:51 98 10/23/19 17:49 99 10/23/19 17:20 10/23/19 17:10 10/23/19 17:00 10/23/19 16:50 10/23/19 16:46 10/23/19 16:06 99 10/23/19 15:48 96 Pain Intensity Bilateral Abdomen: Pain Intensity: 0 Transfer of Care Handoff Completed per policy Notes Mental Status: alert / awake / arousable and participated in evaluation Patient Amnestic to Procedure: Yes Nausea / Vomiting: adequately controlled Pain: adequately controlled Airway Patency, RR, SpO2: stable & adequate BP & HR: stable & adequate Hydration State: stable & adequate Anesthetic Complications: no major complications apparent and Pt Satisfied with anesthetic care
[2019-10-24] MEDS ORDERED: DiphenhydrAMINE HCL 50 MG/ML VIAL IV STA (19:35)
[2019-10-24] MEDS: PARoxetine HCL 20 MG TAB PO SCH (19:57)
[2019-10-25] MEDS: MoRPHine SULFATE 4 MG/ML 1 ML CARP\\VIAL IV PRN (00:02)
[2019-10-25] MEDS: D5W AND NSS 1,000 ML IV SCH ×2 (01:02→09:02)
[2019-10-25 06:26] LABS: Hematocrit (blood only) 43.4 % (42-52); Hemoglobin 15.2 g/dL (14.0-18.0); Mean Corpuscular Hemoglobin 30.9 pg (25-34); Mean Corpuscular Volume 88.2 fL (80-100); Mean Platelet Volume 11.1 fL (7.4-10.4); Platelet Count 249 K/uL (130-400); RDW Coefficient of Variation 12.9 % (11.5-14.5); RDW Standard Deviation 40.8 fL (36.4-46.3); Red Blood Count 4.92 M/uL (4.7-6.1); White Blood Count 17.49 K/uL (4.8-10.8)
[2019-10-25 06:48] LABS: Albumin Level 3.1 gm/dl (3.4-5.0); BUN Creatinine Ratio 4.8 (10-20); Calcium 7.8 mg/dl (8.5-10.1); Creatinine Clr Calc Pharmacy 132.5 ml/min; Est GFR (African American) 105.6; Est GFR (Non-African American) 91.1; Potassium 3.4 mmol/L (3.5-5.1)
[2019-10-25 06:55] LABS: Bilirubin,Total 0.8 mg/dl (0.2-1); Globulin 3.2 gm/dl (2.5-4.0); Total Protein 6.3 gm/dl (6.4-8.2)
[2019-10-25] MEDS ORDERED: DiphenhydrAMINE HCL 50 MG/ML VIAL IV PRN (08:26)
--- NOTE | 2019-10-25 08:28 | Hospitalist Progress Note ---
Date of Service October 25, 2019 Assessment & Plan (1) Abdominal pain: (2) Vomiting: (3) Leukocytosis: (4) Abdominal ascites: (5) Right upper quadrant abdominal pain: (6) Epigastric pain: (7) Hypertension: ASSESSMENT AND PLAN: This 34-year-old male who presents with nausea, vomiting, abdominal pain, diarrhea. 1. Nausea, vomiting, abdominal pain, diarrhea: Ongoing since last . Initially, the first few days has flu like symptoms. His COVID test done on last Monday was negative. Outpatient labs and gallbladder ultrasound show gallbladder polyp and leukocytosis. CAT scan done here shows mild gallbladder distention, nonspecific enteritis and perirectal infiltration, and mild gallbladder distention. Surgery was notified by ER. 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 Started on empiric IV Zosyn, which we will continue, n.p.o., IV fluids, D5 normal saline 125 mL per hour, IV morphine p.r.n., IV Zofran p.r.n. GI scoped him 10/23. CT of the chest to trace right pleural effusion noted on CT abdomen and pelvis. 2. Esophagitis: On IV Protonix b.i.d. 3. Leukocytosis. Trending Down. 4. Generalized anxiety disorder: Continue his home medication, paroxetine. 5. Deep venous thrombosis prophylaxis: Sequential compression devices for now HIDA EF 5%, Lipids normal , and lipase normal, Surgery on case-Possible Lap Ju Labs checked ROS-No Headache, No Visual Changes, No Nausea, No Vomiting, No Fever, No Chills, No Neck Pain or Stiffness, No Chest Pain, No Palpitations, No SOB, No GORMAN, No Cough, No Sputum, No Wheezing, + Abdominal Pain Epigastric and RUQ, No Diarrhea, No Hematemesis, No Hemoptysis, No Unexpected Weight Loss, No Flank pain, No Melena, No Hematochezia, No Frequency, No Urgency, No Burning, No Hematuria, No Rashes, No Diaphoresis. Appetite is Normal Physical Exam Gen-AAO x 3, NAD, Afebrile, Obese Head-NCAT, EOMI, PERRLA, Anicteric Sclera, No Posterior Pharyngeal Erythema Neck-Supple, No JVD, No Thyromegaly, No Masses, No LAD, No Bruits Lungs-Clear to Auscultation Bilaterally, No Rales, No Rhonchi, No Wheezing, No Crepitus Chest-No S4, +S1, +S2, No S3, No Murmurs, No Rubs, No Gallops, No Ectopy Abdomen-Soft, Bowel Sounds Present, RUQ and Epigastric Tender, Non Distended, No Hepatomegaly, No Splenomegaly, No Palpable Masses, No Rebound, No Rigidity, No Guarding Musculoskeletal-Full Range of Motion Bilaterally, No CVAT Extremities-No Cyanosis, No Clubbing, No Edema Nuero-Cranial Nerves II-XII grossly intact, Motor WNL, DTRs WNL, Strength WNL, Non Focal Psych-Normal Mood Admission and Anticipated Discharge Date Admission Date: October 23, 2019 Results & Data Results & Data ([facility]) Vital Signs (Past 12 Hours) Vital Signs Temp Pulse Resp BP Pulse Ox 10/25/19 07:25 36.6 C 76 15 151/93 H 93 10/25/19 03:55 36.6 C 73 16 145/91 H 94 10/24/19 23:30 36.9 C 80 20 155/98 H 95 (1) Abdominal pain Abdominal location: unspecified location Qualified Code(s): R10.9 - Unspecified abdominal pain (2) Vomiting Nausea presence: unspecified Vomiting Intractability: unspecified Vomiting type: unspecified Qualified Code(s): R11.10 - Vomiting, unspecified (3) Leukocytosis Leukocytosis type: unspecified Qualified Code(s): D72.829 - Elevated white blood cell count, unspecified (4) Abdominal ascites Ascites type: other type Qualified Code(s): R18.8 - Other ascites
[2019-10-25] MEDS: PANTOprazole 40 MG in SYRINGE 0 ML IV SCH (08:38)
--- NOTE | 2019-10-25 08:50 | Surgery Progress Note ---
Date of Service pt feels better, less epigastric pain, no fever, no nausea, no vomiting, pt had EGD yesterday finding- Impression: - LA Grade A reflux esophagitis. B iopsied. - Small hiatal hernia. - Normal stomach. - Duodenitis. October 25, 2019 Assessment & Plan (1) Epigastric pain: pt is a 34 year-old male who presents to ER with 11 days history nausea, vomiting, epigastric pain and diarrhea, IMP: vomiting, epigastric pain, to R/O Corey-Robert tear syndrome consult GI, and thoracic surgeon, transfer to tertiary care, D/W pt about H/P, labs, U/S, CT scan diagnosis, and transfer for further diagnosis and treatment, pt understood, he agrees with the plan, D/W ER attending, 10/24/2019 11:38am I agree with GI for EGD today to R/O corey -Robert tear, WBC 18,000, low gallbladder EF 5% should not have high WBC, pt may need cholecystectomy if EGD normal finding, NPO after MN, pt agrees with the plan, I answered all questions, will F/U 10/25/2019 8:53AM doing better WBC 17,000 clear diet, low EF gallbladder function- I will do laparoscopic cholecystectomy on out- patient base, pt may be discharged if he tolerated diet and WBC down, follow up me in 1 week [phone], pt agrees with the plan, I answered all questions, (2) Vomiting: Supervising Physician Co-Signing Physician Notes I performed a history and physical examination of the patient today, including specifically on physical exam - soft abdomen. I have discussed the patient's management with the advanced practitioner. Please refer to the nurse practitioner's note for the documented findings and plan of care. EGD today Review of Systems Constitutional: as per Subjective / HPI Eyes: as per Subjective / HPI Ear, Nose, Mouth, Throat: as per Subjective / HPI Respiratory: as per Subjective / HPI Cardiovascular: as per Subjective / HPI Gastrointestinal: as per Subjective / HPI Genitourinary: + as per Subjective / HPI Musculoskeletal: as per Subjective / HPI Integumentary: as per Subjective / HPI Neurologic: as per Subjective / HPI Psychiatric: as per Subjective / HPI Endocrine: as per Subjective / HPI Hematologic / Lymphatic: as per Subjective / HPI Physical Exam Constitutional: WD/WN, vitals as above well developed and well nourished Eyes: PERRL, conjunctivae normal, anicteric sclerae ENMT: external ear and nose normal, oropharynx normal Neck: trachea midline, no thyromegaly Respiratory: normal respiratory effort, lungs clear to auscultation normal respiratory effort Cardiovascular: RRR, no murmur, no edema Rate/Rhythm: regular rate Heart Sounds: normal S1 and normal S2 Gastrointestinal (Abdomen): Percussion/Palpation: + abdomen tender and abdomen soft mild tenderness at epigastric area, no rebound pain, no distend, BS + Musculoskeletal: no cyanosis or clubbing, extremities motor strength 5/5 Skin: no rashes, warm and dry Neurologic: patellar DTR's 2+ bilat, sensation intact Psychiatric: Orientation: alert and oriented x 3 Results & Data Vital Signs (Past 12 Hours) Vital Signs Temp Pulse Resp BP Pulse Ox 10/25/19 07:25 36.6 C 76 15 151/93 H 93 10/25/19 03:55 36.6 C 73 16 145/91 H 94 10/24/19 23:30 36.9 C 80 20 155/98 H 95 Laboratory Results Abnormal lab results 10/25/19 10/25/19 Range/Units 05:43 05:43 WBC 17.49 H (4.8-10.8) K/uL MPV 11.1 H (7.4-10.4) fL Potassium 3.4 L (3.5-5.1) mmol/L Chloride 113 H (98-107) mmol/L BUN 5 L D (7-18) mg/dl BUN/Creatinine Ratio 4.8 L (10-20) Calcium 7.8 L (8.5-10.1) mg/dl Alkaline Phosphatase 43 L (45-117) U/L Total Protein 6.3 L (6.4-8.2) gm/dl Albumin 3.1 L (3.4-5.0) gm/dl
[2019-10-25] MEDS: FAMOTIDINE 20 MG TAB PO SCH ×3 (09:03→20:52)
[2019-10-25] MEDS: PIPERACILLIN/TAZOBACTAM 4.5 GM in DEXTROSE 5% 100 ML IV SCH ×3 (09:03→23:50)
[2019-10-25] MEDS ORDERED: predniSONE 50 MG TAB PO ONE (09:15)
--- NOTE | 2019-10-25 10:06 | Gastroenterology Progress Note ---
Date of Service October 25, 2019 Assessment & Plan (1) Leukocytosis: (2) Enteritis: (3) Esophagitis: Pt is a 34 y/o male presented w upper abd pain, n/v, loose stools x 1 week; on eval noted to have leukocytosis, and CT evidence of enteritis, esophagitis. EGD 10/24/2019 showed: LA Grade A reflux esophagitis. Small hiatal hernia. Normal stomach. Duodenitis. His symptoms are resolved now. - Protonix 40mg daily - Famotidine 20mg BID. Previously prescribed for hives - Check stool cx and Cdiff if diarrhea continues - Symptomatic management w antiemetics prn. - Advance diet as tolerated. OK to DC IVF - GI to sign off; recall prn. We will schedule outpt EUS w FNA to eval submucosal esophageal thickening - HIDA showed signs of biliary dyskinesia. Advised him to stay on low fat diet and f/u w Surgery to discuss cholecystectomy in outpt setting Admission and Anticipated Discharge Date Admission Date: October 23, 2019 Supervising Physician Co-Signing Physician Notes I performed a history and physical examination of the patient today, including specifically on physical exam - soft abdomen. I have discussed the patient's management with the advanced practitioner. Please refer to the nurse practitioner's note for the documented findings and plan of care. PO PPI Surgery f/u for GB dyskinesia Recall GI if needed. Subjective Pt reports not having any more diarrhea, no n/v, abd pain. Tolerating CL diet well. Review of Systems Review of Systems: All systems reviewed & are unremarkable except as noted in HPI & below Physical Exam Constitutional: WD/WN, vitals as above well groomed, cooperative and comfortable Eyes: PERRL, conjunctivae normal, anicteric sclerae ENMT: external ear and nose normal, oropharynx normal Respiratory: normal respiratory effort, lungs clear to auscultation Cardiovascular: RRR, no murmur, no edema Gastrointestinal (Abdomen): normal bowel sounds, soft, nontender, no hepatosplenomegaly Skin: no rashes, warm and dry no jaundice Psychiatric: A+Ox3, euthymic affect Lymphatic: no lymphedema Results & Data ([facility]) Vital Signs (Past 12 Hours) Vital Signs Temp Pulse Resp BP Pulse Ox 10/25/19 07:25 36.6 C 76 15 151/93 H 93 10/25/19 03:55 36.6 C 73 16 145/91 H 94 10/24/19 23:30 36.9 C 80 20 155/98 H 95 (1) Leukocytosis Leukocytosis type: unspecified Qualified Code(s): D72.829 - Elevated white blood cell count, unspecified
[2019-10-25] MEDS: PARoxetine HCL 20 MG TAB PO SCH (20:52)
[2019-10-26 05:56] LABS: Hematocrit (blood only) 44.3 % (42-52); Hemoglobin 15.4 g/dL (14.0-18.0); Mean Corpuscular Hemoglobin 30.6 pg (25-34); Mean Corpuscular Hgb Conc 34.8 g/dL (32-36); Mean Corpuscular Volume 88.1 fL (80-100); Platelet Count 278 K/uL (130-400); RDW Coefficient of Variation 12.8 % (11.5-14.5); RDW Standard Deviation 40.7 fL (36.4-46.3); Red Blood Count 5.03 M/uL (4.7-6.1); White Blood Count 17.41 K/uL (4.8-10.8)
[2019-10-26 06:27] LABS: Calcium 8.6 mg/dl (8.5-10.1); Creatinine Clr Calc Pharmacy 139.1 ml/min; Est GFR (Non-African American) 96.6; Potassium 3.4 mmol/L (3.5-5.1)
--- NOTE | 2019-10-26 08:05 | Discharge Summary ---
Date of Service October 26, 2019 Admission HPI Per Admitting Provider This is a 34-year-old male with past medical history significant for generalized anxiety disorder, history of angioedema, cystitis, obesity, comes because of ongoing nausea, vomiting, abdominal pain, diarrhea. The patient's symptoms started on the of this month. Initially felt flu-like symptoms, but last night he started with nausea, vomiting, abdominal pain and several episodes of diarrhea. He could not eat anything, he could not even tolerate popsicles. His COVID test was done on last Monday and it came back negative and he had tele medicine and seen by his family doctor and labs were ordered and ultrasound was done yesterday. His labs came back as his white count was 24,000 and imaging, ultrasound of the abdominal was mostly suboptimal study which was unremarkable except for 6 mm gallbladder polyp versus sludge. Because of elevated white count, the patient advised to come here. In the ER, his white count is 22,000 and hemodynamically stable, afebrile. His LFTs were okay. Urinalysis negative. CT abdomen and pelvis was done which showed mesenteric infiltration of the proximal jejunum and duodenum, nonspecific enteritis, small amount of ascites. Normal appendix. No abscess or no free air, circumferential distal esophageal wall thickening similar to CT scan of 04/2014, favors esophagitis, mild gallbladder distention, mild nonspecific perirectal infiltration.Mild right pleural effusion. Chest x-ray showed no acute cardiopulmonary findings. Initially evaluated by Surgery they thought there could be Boerhaave syndrome as there was pleural effusion and the patient's initial plan was transfer to tertiary care. But patient was denied for transfer as the patient is doing fine and Boerhaave syndrome thought to be less likely, then again oyster tonger surgery was okay for to keep the patient in the hospital. The patient says his nausea has improved, today, he was able to eat solid food after a long time. He is having like low grade temperatures in the evening in the nighttime with some chills and highest temperature was 100.4, and yesterday the temperature was about 99, but he is getting chills every night. He has allergies and he has some runny nose once in a while, but they are not unusual, but he generally coughs once in a while, but his cough is not much but is slightly more than usual. No shortness of breath. He says since the symptoms started, he sometimes having felt like a lump in throat and difficulty swallowing, but that resolves on its own. Has some headache today that is improved. No blurred visions. No earache. Also he had a couple of days of sore throat when he woke up, but that resolved after a couple of hours. Currently, no nausea, abdominal pain improved, but he had episode of diarrhea in the morning. No blood in the stools. Normal bowel and bladder movements. No burning micturition, no hematuria. No swelling in the legs, ambulates okay. Sleeps okay. Admission Exam Per Admitting Provider GENERAL: The patient is obese, not in acute distress. VITAL SIGNS: Temperature 36.8, pulse 94, respiratory rate 19, blood pressure 169/107, oxygen 97% room air. HEENT: No pallor, no icterus. NECK: No JVD seen. No neck masses seen. CARDIOVASCULAR: S1, S2 heard, regular rate and rhythm, no murmur, no gallop. RESPIRATORY SYSTEM: Normal AP diameter. No accessory muscle use. No wheezing, no crackles. ABDOMEN: Soft, bowel sounds present, nontender. No distention, no guarding, no rigidity. CENTRAL NERVOUS SYSTEM: Cranial nerves II-XII grossly intact. Nonfocal. EXTREMITIES: No edema, no erythema. Principal Diagnosis (1) Abdominal pain/Enteritis/Esophagitis/Cholecystitis: (2) Vomiting: (3) Leukocytosis: (4) Abdominal ascites: (5) Right upper quadrant abdominal pain: (6) Epigastric pain: (7) Hypertension: Discharge Exam See below Discharge Data Allergies Allergy/AdvReac Type Severity Reaction Status Date / Time ketorolac AdvReac Intermediate "Horrible" Verified 10/24/19 13:11 Acid Reflux Consultations 10/23/19 18:34 Consult General Surgery Stat ED Decision to Admit Stat 10/24/19 08:00 Consult Gastroenterology Routine Procedures Performed Operation Date: 10/24/19 17:25 Actual Procedures p EGD Biopsy Cytology - Olivia Armstrong MD Ordered Studies 10/23/19 16:05 CT abd pelvis IV 1. Thickening and associated mesenteric infiltration of the proximal jejunum and duodenum. The findings suggest a nonspecific enteritis. Small amount of associated ascites. No evidence for a bowel obstruction. Normal appendix. No abscess. No free air. 2. Marked circumferential distal esophageal wall thickening which is similar to CT of May 03, 2014. Although nonspecific, this favors esophagitis. 3. Mild infiltration adjacent to the bladder which could be correlated with urinalysis. 4. Mild gallbladder distention. 5. Mild nonspecific perirectal infiltration. 10/23/19 21:20 CT chest wo con 1. Slight increase in size in the small right pleural effusion. Associated densities favor compressive atelectasis. 2. Marked diffuse thickening of the mid to distal esophagus. This remains unchanged. This favors an esophagitis. Endoscopy recommended for further evaluation. 3. Trace perihepatic fluid.. 4. A few scattered indeterminate pulmonary nodules within the left lung. The largest in the left lung apex is a 5 mm groundglass nodule. These are likely benign given the patient's age. One year chest CT follow-up can be performed to ensure stability. 5. Mild emphysema. Current Diagnoses Elevated white blood cell count, unspecified (10/23/19) Essential (primary) hypertension (10/23/19) Esophagitis, unspecified (10/23/19) Noninfective gastroenteritis and colitis, unspecified (10/23/19) Right upper quadrant pain (10/23/19) Epigastric pain (10/23/19) Unspecified abdominal pain (10/23/19) Vomiting, unspecified (10/23/19) Other ascites (10/23/19) Encounter for other preprocedural examination (10/23/19) Allergies ketorolac Adverse Reaction (Intermediate, Verified 10/24/19 13:11) "Horrible" Acid Reflux Height/Weight/Isolation Height 6 ft Weight 122.1 kg Chemistry 10/25/19 10/26/19 05:43 05:27 Sodium 144 144 Potassium 3.4 L 3.4 L Chloride 113 H 111 H Carbon Dioxide 26 26 Anion Gap 5.0 7.0 BUN 5 L D 6 L Creatinine 1.06 1.01 Glucose 97 85 Microbiology 10/25/19 13:35 Stool Escherichia coli Shiga Toxins Test - Pending 10/25/19 13:35 Stool Stool Culture - Pending Hospital Course (1) Abdominal pain: (2) Vomiting: (3) Leukocytosis: (4) Abdominal ascites: (5) Right upper quadrant abdominal pain: (6) Epigastric pain: (7) Hypertension: ASSESSMENT AND PLAN: This 34-year-old male who presents with nausea, vomiting, abdominal pain, diarrhea. 1. Nausea, vomiting, abdominal pain, diarrhea: Ongoing since last . Initially, the first few days has flu like symptoms. His COVID test done on last Monday was negative. Outpatient labs and gallbladder ultrasound show gallbladder polyp and leukocytosis. CAT scan done here shows mild gallbladder distention, nonspecific enteritis and perirectal infiltration, and mild gallbladder distention. Surgery was notified by ER. Initially planned for transfer as question of esophageal tear but patient was not accepted in transfer and surgery oyster tonger at night was okay for admission. Started on empiric IV Zosyn, IV fluids, GI scoped him 10/23 and found esophagitis. 2. Esophagitis: DC on PPI 3. Leukocytosis. Trending Down, DC on Levaquin and Flagyl. 4. Generalized anxiety disorder: Continue his home medication, paroxetine. 5. Deep venous thrombosis prophylaxis: Sequential compression devices for now HIDA EF 5%, Lipids normal , and lipase normal, Surgery on case-Possible Lap Ju Monday Labs checked ROS-No Headache, No Visual Changes, No Nausea, No Vomiting, No Fever, No Chills, No Neck Pain or Stiffness, No Chest Pain, No Palpitations, No SOB, No GORMAN, No Cough, No Sputum, No Wheezing, + Abdominal Pain Epigastric and RUQ, No Diarrhea, No Hematemesis, No Hemoptysis, No Unexpected Weight Loss, No Flank pain, No Melena, No Hematochezia, No Frequency, No Urgency, No Burning, No Hematuria, No Rashes, No Diaphoresis. Appetite is Normal Physical Exam Gen-AAO x 3, NAD, Afebrile, Obese Head-NCAT, EOMI, PERRLA, Anicteric Sclera, No Posterior Pharyngeal Erythema Neck-Supple, No JVD, No Thyromegaly, No Masses, No LAD, No Bruits Lungs-Clear to Auscultation Bilaterally, No Rales, No Rhonchi, No Wheezing, No Crepitus Chest-No S4, +S1, +S2, No S3, No Murmurs, No Rubs, No Gallops, No Ectopy Abdomen-Soft, Bowel Sounds Present, RUQ and Epigastric Tender, Non Distended, No Hepatomegaly, No Splenomegaly, No Palpable Masses, No Rebound, No Rigidity, No Guarding Musculoskeletal-Full Range of Motion Bilaterally, No CVAT Extremities-No Cyanosis, No Clubbing, No Edema Nuero-Cranial Nerves II-XII grossly intact, Motor WNL, DTRs WNL, Strength WNL, Non Focal Psych-Normal Mood Total Time Total Time Spent Total Time Spent (In Minutes): 45 mins Total Time Includes: Examination of the Patient, Discharge Planning, Medication Reconciliation and Communication With Other Providers Discharge Plan Discharge Items Patient Disposition: Home - Self-Care Reason For Visit: ABNORMAL LABS Discharge Diagnosis: (1) Abdominal pain/Enteritis/Esophagitis/Cholecystitis: (2) Vomiting: (3) Leukocytosis: (4) Abdominal ascites: (5) Right upper quadrant abdominal pain: (6) Epigastric pain: (7) Hypertension: Condition on Discharge: Good Health Concerns: Inflamed GB, Leukocytosis Activity: Resume your previous activity Lifting: Wait until after follow-up appointment Bathing: No limitations Sexual Activity: When tolerated Exercise/Sports: None Driving/Machine Use: No limitations Weightbearing: Full weightbearing Non-emergency contact: Primary Care Provider, Surgeon and [facility] Call non-emergency contact if: you have any medication questions Follow-up/Referrals: Kwame Landa MD [Primary Care Provider] - (Call for first opening) Jevon Leonardo MD [Physician] - (Call Monday) Olivia Armstrong MD [Hospitalist] - (Call for first opening) Diet: Heart Healthy Addtl Attending Provider Instructions: IBD and Celiac Panel drawn before DC Pending Studies at Discharge: No Stand-Alone Forms: [facility], Smoking Cessation Medications and DC Order Prescriptions: New pantoprazole 40 mg Tablet,Delayed Release (Dr/Ec) 40 mg PO BID Qty: 30 RF: 0 metronidazole [Flagyl] 500 mg tablet 500 mg PO Q8H 7 Days Qty: 21 RF: 0 levofloxacin [Levaquin] 500 mg tablet 500 mg PO DAILY 10 Days Qty: 10 RF: 0 tramadol [Ultram] 50 mg tablet 50 mg PO TID PRN (Reason: pain) Qty: 30 RF: 0 prochlorperazine maleate [Compazine] 10 mg tablet 10 mg PO Q8H PRN (Reason: nausea and vomiting) Qty: 20 RF: 0 Continued famotidine 20 mg tablet 20 mg PO BID RF: 0 paroxetine HCl 20 mg tablet 20 mg PO HS RF: 0 Discharge Orders: Discharge Order (Routine); Ordered 10/26/19 Ordered By: Chicho Butcher Admission Data Admit Date/Time: 10/23/19 21:20 Attending Provider: Chicho Butcher Admit Provider: Angelo Morrissey Primary Care Provider: Kwame Landa Other Providers: Jevon Leonardo ; Angelo Morrissey ; Eder Abdi ; Esther Headley ; Amira Hayes ; Diana Golden ; Eliseo Gonzalez ; William Short ; Harrison Zuniga ; Aruna Hadley ; Reese Macario ; Aguilar Jefferson ; Shanna Malone ; Sherrie Gonzalez ; Cadence Isbell ; Kimberlee Cline ; Olivia Armstrong Other Interventions: Discharge Summary Assessment (RN) Last Done: 10/24/19 14:44
[2019-10-26] MEDS: MoRPHine SULFATE 4 MG/ML 1 ML CARP\\VIAL IV PRN (08:31)
[2019-10-26] MEDS: PIPERACILLIN/TAZOBACTAM 4.5 GM in DEXTROSE 5% 100 ML IV SCH (08:35)
[2019-10-26] MEDS ORDERED: PANTOprazole 40 MG TAB PO SCH (09:00)
[2019-10-26] MEDS: FAMOTIDINE 20 MG TAB PO SCH (09:08)
[2019-10-31 12:53] LABS: ANCA Screen Negative (Negative); IgA Serum 258 mg/dL (47-310); Myeloperoxidase Ab <1.0 AI (<1.0); Proteinase-3 AB <1.0 AI (<1.0); Tis Trans IgA 1 U/mL
== END 2019-10-26 13:55 | disposition home or self-care (01) ==
LOC: ED 15:45 → INTOOBSV 21:20 → 3N 21:20